=== PATIENT | female | born 1965 | race American Indian/Alaskan Native ===

== ENCOUNTER 2017-08-03 00:29 | Emergency (ER) | payer BC ==
[2017-08-03] MEDS ORDERED: ASPIRIN PO ONE (02:27)
[2017-08-03 02:38] LABS: Basophils # (Auto) 0.1 K/mm3 (0.0-0.1); Basophils % (Auto) 1.1 % (0.0-1.8); Eosinophils # (Auto) 0.2 K/mm3 (0.0-0.4); Eosinophils % (Auto) 2.2 % (0.0-4.3); Hematocrit 35.1 % (30.3-42.9); Hemoglobin 12.1 gm/dl (10.1-14.3); Lymphocytes # (Auto) 2.4 K/mm3 (1.2-5.4); Lymphocytes % (Auto) 24.5 % (13.4-35.0); Mean Corpuscular HGB Conc 34 % (30-34); Mean Corpuscular Hemoglobin 28 pg (28-32); Mean Corpuscular Volume 82 fl (79-97); Monocytes # (Auto) 0.6 K/mm3 (0.0-0.8); Monocytes % (Auto) 6.6 % (0.0-7.3); Platelet Count 370 K/mm3 (140-440); Red Blood Count 4.29 M/mm3 (3.65-5.03); Red Cell Distribution Width 13.8 % (13.2-15.2)
[2017-08-03 03:03] LABS: Alanine Aminotransferase 16 units/L (7-56); Albumin 4.7 g/dL (3.9-5); BUN/Creatinine Ratio 13; Blood Urea Nitrogen 9 mg/dL (7-17); Calcium 9.3 mg/dL (8.4-10.2); Hemolysis Index 10; Lipase 15 units/L (13-60)
[2017-08-03 04:14] LABS: Amorphous Crystals,Urine 3+; Bilirubin,Urine NEG (Negative); Blood,Urine NEG (Negative); Color,Urine Yellow (Yellow); Protein,Urine <15 mg/dL mg/dL (Negative); Urobilinogen,Urine < 2.0 mg/dL (<2.0)
--- NOTE | 2017-08-03 10:28 | Emergency Department Report ---
ED General Adult HPI - General Chief complaint: Chest Pain Stated complaint: CP; CONSTIPATION Time Seen by Provider: 08/03/17 10:18 Source: patient Mode of arrival: Ambulatory Limitations: No Limitations - History of Present Illness Initial comments: 51 female patient is poor historian states that she has been constipated for 4 days normally goes to bowel movement every other day she started taking Pepto- Bismol and got worse. Yesterday times today she started getting worsening constipation with a heaviness off and on to her chest. It was nonexertional for 30 seconds at a time. It was not tearing there was no radiation there is no shortness of breath she has no nausea or vomiting she is here for evaluation of reproducible chest wall pain that is somewhat heavy she's not sure if it's coming from her stomach with constipation for 4 days no nausea vomiting diarrhea no fever no calf pain or swelling no back pain no urinary complaints no fever no risk factors DVT PE -: Gradual, hour(s), days(s), unknown Location: chest, abdomen Severity scale (0 -10): 10 Consistency: intermittent - Related Data Previous Rx's Medication Instructions Recorded Last Taken Type Glycerin [Adult Glycerin] 1 each DE BID PRN #15 supp.rect 08/03/17 Unknown Rx Sennosides [Senna Laxative] 8.6 mg PO Q12H PRN #15 tab 08/03/17 Unknown Rx Allergies Allergy/AdvReac Type Severity Reaction Status Date / Time No Known Allergies Allergy Verified 08/03/17 02:27 ED Review of Systems ROS: Stated complaint: CP; CONSTIPATION Other details as noted in HPI Comment: All other systems reviewed and negative Constitutional: denies: diaphoresis, fever, malaise Eyes: denies: eye discharge, vision change ENT: denies: dental pain, hearing loss, epistaxis Respiratory: denies: shortness of breath, SOB with exertion, SOB at rest, stridor Cardiovascular: chest pain. denies: palpitations, dyspnea on exertion, orthopnea, edema, syncope, paroxysmal nocturnal dyspnea Gastrointestinal: constipation. denies: nausea, vomiting, diarrhea, hematemesis , melena, hematochezia Neurological: denies: headache, weakness, numbness, paresthesias, confusion, abnormal gait, vertigo Psychiatric: denies: auditory hallucinations, visual hallucinations, homicidal thoughts, suicidal thoughts ED Past Medical Hx - Past Medical History Previous Medical History?: No - Surgical History Past Surgical History?: Yes Additional Surgical History: x3 - Social History Smoking Status: Never Smoker Substance Use Type: Alcohol - Medications Home Medications: Home Medications Medication Instructions Recorded Confirmed Last Taken Type Glycerin [Adult Glycerin] 1 each DE BID PRN #15 supp.rect 08/03/17 Unknown Rx Sennosides [Senna Laxative] 8.6 mg PO Q12H PRN #15 tab 08/03/17 Unknown Rx ED Physical Exam - General Limitations: No Limitations General appearance: alert, in no apparent distress, anxious - Head Head exam: Present: atraumatic, normocephalic - Eye Eye exam: Present: normal appearance, PERRL, EOMI - ENT ENT exam: Present: normal exam, normal orophraynx - Neck Neck exam: Present: normal inspection. Absent: tenderness, meningismus - Respiratory Respiratory exam: Present: normal lung sounds bilaterally, chest wall tenderness , other (pulses equal bilaterally). Absent: respiratory distress, wheezes, rales, rhonchi, stridor, accessory muscle use, decreased breath sounds, prolonged expiratory - Cardiovascular Cardiovascular Exam: Present: regular rate, normal rhythm, normal heart sounds. Absent: tachycardia, systolic murmur, diastolic murmur, rubs, gallop - GI/Abdominal GI/Abdominal exam: Present: soft. Absent: distended, tenderness, guarding, rebound, rigid, mass, pulsatile mass - Extremities Exam Extremities exam: Present: normal inspection, normal capillary refill. Absent: tenderness, pedal edema, joint swelling, calf tenderness - Back Exam Back exam: Present: normal inspection. Absent: CVA tenderness (R), CVA tenderness (L), muscle spasm, paraspinal tenderness, vertebral tenderness - Neurological Exam Neurological exam: Present: alert, oriented X3, CN II-XII intact. Absent: motor sensory deficit - Psychiatric Psychiatric exam: Present: anxious. Absent: flat affect, manic, homicidal ideation - Skin Skin exam: Present: warm, normal color. Absent: cyanosis, diaphoretic, erythema , urticaria, vesicles, petechiae, abrasion, ecchymosis ED Course Vital Signs 08/03/17 08/03/17 08/03/17 02:21 02:28 07:45 Temperature 98.1 F 97.9 F Pulse Rate 66 66 Respiratory 16 18 Rate Blood Pressure 149/95 Blood Pressure 149/78 [Right] O2 Sat by Pulse 98 99 Oximetry ED Medical Decision Making - Lab Data Result diagrams: 08/03/17 02:30 08/03/17 02:30 - EKG Data -: EKG Interpreted by Me EKG shows normal: sinus rhythm Rate: normal - EKG Data Interpretation: other (normal EKG no acute ischemic change) - Radiology Data Radiology results: report reviewed - Medical Decision Making Patient with atypical chest pain. Chest pain is left-sided. There was no signs of dissection and she had a normal chest x-ray pulses are equal with normal vital signs. There was no signs of PE DVT at this time she has no tachycardia chest x-ray is negative she is not short of breath symptoms are atypical. Swelling over his fracture DVT PE. EKG is negative troponins negative 3 symptoms are atypical she will need outpatient follow-up. She has no evidence of acute abdomen at this time. No evidence of obstruction. X-ray was negative. No black or bloody stool. Abdominal film was nonobstructed pattern. She'll be discharged for outpatient follow-up no evidence of acute emergent process is identified that will require further evaluation or admission at this time Critical care attestation.: If time is entered above; I have spent that time in minutes in the direct care of this critically ill patient, excluding procedure time. ED Disposition Clinical Impression: Atypical chest pain, Constipation, Abdominal pain Disposition: DC-01 TO HOME OR SELFCARE Is pt being admited?: No Condition: Stable Instructions: Chest Pain (ED), Abdominal Pain (ED), Constipation (ED) Additional Instructions: See the doctor listed her regular doctor return if new or alarming symptoms or call 911 Prescriptions: Glycerin [Adult Glycerin] 1 each DE BID PRN #15 supp.rect PRN Reason: Laxative Effect Sennosides [Senna Laxative] 8.6 mg PO Q12H PRN #15 tab PRN Reason: Constipation Referrals: [facility] [Other] - 3-5 Days Time of Disposition: 11:35
--- NOTE | 2017-08-03 10:57 | XRay Report ---
ABDOMINAL SERIES INDICATION: Chest pain, constipation. COMPARISON: None similar at this institution. FINDINGS: Abdominal series, three radiographs, demonstrate nonobstructive bowel gas pattern without focal suspicious calcifications, pneumatosis or pneumoperitoneum. Accompanying chest radiograph suggests top normal heart size. Clear lungs. Unremarkable bones. CONCLUSION: Normal abdominal series. Thank you for the opportunity to participate in this patient's care.
[2017-08-03 11:43] VITALS: BP 138/75
== END 2017-08-03 11:53 | disposition home or self-care (01) ==
LOC: ED 00:29
DX: K59.00 Constipation, unspecified (principal); R07.89 Other chest pain
CPT/HCPCS: 36415; 74022; 80053; 81001; 83690; 84484; 85025; 93005; 93010